=== PATIENT | female | born 1995 | race Caucasian/White ===

== ENCOUNTER 2018-07-12 22:57 | Emergency (ER) | payer SELFPAY ==
[~2018-07-12] VITALS: Wt 66.1 kg
[2018-07-12 23:08] VITALS: BP 109/68; PULSE 66; RESP 18
[2018-07-13] MEDS ORDERED: NITR-58 PO (03:13)
--- NOTE | 2018-07-13 05:41 | ERD ---
ER Documentation Chief Complaint Chief Complaint DYSURIA, BILAT LOWER BACK PAIN X'S 2 DAYS HPI 23-year-old female presenting with lower back pain dysuria. Patient denies any hematuria. Denies fevers. Has urinary frequency and a mild headache. Denies chest pain or shortness of breath. Denies medical problems. NKDA. Surgical history . Social history denies ROS All systems reviewed and are negative except as per history of present illness. Medications Home Meds Active Scripts Nitrofurantoin Monohyd Macrocr* (Macrobid*) 100 Mg Capsr, 100 MG PO BID for 14 Days, CAP Prov:NIGEL FIELDS PA-C 07/13/18 Allergies Allergies: Coded Allergies: No Known Allergy (Unverified , 07/13/18) PMhx/Soc Medical and Surgical Hx: pt denies Medical Hx, pt denies Surgical Hx History of Surgery: Yes (C SECTION ) Hx Alcohol Use: No Hx Substance Use: No Hx Tobacco Use: No Smoking Status: Never smoker FmHx Family History: No diabetes, No coronary disease, No other Physical Exam Vitals Vital Signs Date Temp Pulse Resp B/P (MAP) Pulse Ox O2 O2 Flow FiO2 Time Delivery Rate 07/12/18 98.6 66 18 109/68 99 23:08 (82) Physical Exam GENERAL: The patient is well-appearing, well-nourished, in no acute distress HEENT: Atraumatic. Conjunctivae are pink. Pupils equal, round, and reactive to light. There is no scleral icterus. Tympanic membranes clear bilaterally. Oropharynx clear. NECK: C-spine is soft and supple. There is no meningismus. There is no cervical lymphadenopathy. CHEST: Clear to auscultation bilaterally. There are no rales, wheezes or rhonchi. HEART: Regular rate and rhythm. No murmurs, clicks, rubs or gallops. ABDOMEN:Soft, nontender and nondistended. Good bowel sounds. No rebound or guarding. No gross peritonitis. No gross organomegaly or masses. BACK: No midline or flank tenderness. Results 24 hrs Laboratory Tests Test 07/13/18 02:48 07/13/18 02:50 Bedside Urine pH (LAB) 7.5 Bedside Urine Protein (LAB) Trace Bedside Urine Glucose (UA) Negative Bedside Urine Ketones (LAB) Negative Bedside Urine Blood Negative Bedside Urine Nitrite (LAB) Negative Bedside Urine Leukocyte Esterase (L Trace POC Beta HCG, Qualitative POSITIVE Procedures/MDM ER course: Urine positive. Urinalysis mild infection. MDM: 23-year-old female presenting with dysuria. Patient will be treated for urinary tract infection. Patient is a new finding of . I have low suspicion for pelvic emergency. I have low suspicion for ectopic as patient does not have lateralized pelvic pain on exam. Patient is not having vaginal bleeding. Patient does not require blood work or imaging and associated with her is recommended to follow-up with her primary doctor in 1 to 2 days for close evaluation. All questions answered at discharge Departure Diagnosis: Primary Impression: UTI (urinary tract infection) Additional Impression: Condition: Stable Patient Instructions: Understanding Urinary Tract Infections (UTIs), , New Dx Referrals: [employer] [place] [address] [facility] [address] [place] [address]ABUSLEME ESTHER [address] [place] [address] DR. VIVAR COMO [address] [place] [address] DR ABDUL [facility] [address] [facility], [address] [address] [address] [facility] [address] [place] [address] [facility] [address] [place] [address] [facility] [address] - [place] [address], [facility] [address] [address] MARAVILLA, [place] [address] [facility]. [address], [facility] [address] [address] ROBERT [facility] [id number] [place] [id number] Additional Instructions: FOLLOW UP WITH YOUR PRIMARY CARE PHYSICIAN TOMORROW.Return to this facility if you are not improving as expected. NIGEL FIELDS PA-C July 13, 2018 05:41
== END 2018-07-13 03:24 | disposition home or self-care (01) ==
LOC: FTE 22:57 → EDBD 22:57 → FTE 07-13 03:24
DX: N39.0 Urinary tract infection, site not specified (principal); Z33.1 Pregnant state, incidental
CPT/HCPCS: 81003; 81025; 99283

== ENCOUNTER 2018-07-30 20:11 | Emergency (ER) | payer MEDICAID ==
[~2018-07-30] VITALS: Ht 154.9 cm; Wt 65.6 kg
[~2018-07-30 20:11] MED LIST: NITR-58 PO
[2018-07-30 20:13] VITALS: Ht 154.9 cm; Wt 65.6 kg
[2018-07-30] MEDS ORDERED: NITR-58 PO (23:42)
[2018-07-30] MEDS ORDERED: ACET-141 PO (23:42)
--- NOTE | 2018-07-30 23:50 | ERD ---
ER Documentation Chief Complaint Chief Complaint C/O PELVIC PAIN SINCE YESTERDAY, 7 WEEKS PREG ROS All systems reviewed and are negative except as per history of present illness. Medications Home Meds Active Scripts Nitrofurantoin Monohyd Macrocr* (Macrobid*) 100 Mg Capsr, 100 MG PO BID for bacteruria in for 5 Days, #10 CAP Prov:JAYLEEN DELGADO DO 07/30/18 Acetaminophen* (Acetaminophen*) 500 MG Extra Strength Tablet, 500 MG PO Q4H PRN for PAIN AND OR ELEVATED TEMP, #30 TAB Prov:JAYLEEN DELGADO DO 07/30/18 Nitrofurantoin Monohyd Macrocr* (Macrobid*) 100 Mg Capsr, 100 MG PO BID for 14 Days, CAP Prov:NIGEL FIELDS PA-C 07/13/18 Allergies Allergies: Coded Allergies: No Known Allergy (Unverified , 07/13/18) PMhx/Soc History of Surgery: Yes (C SECTION ) Hx Alcohol Use: No Hx Substance Use: No Hx Tobacco Use: No Smoking Status: Never smoker Physical Exam Vitals Vital Signs Date Temp Pulse Resp B/P (MAP) Pulse Ox O2 O2 Flow FiO2 Time Delivery Rate 07/30/18 98.0 60 21 120/70 99 20:13 (87) Physical Exam Const: No acute distress Head: Atraumatic Eyes: Normal Conjunctiva ENT: Normal External Ears, Nose and Mouth. Neck: Full range of motion. No meningismus. Resp: Clear to auscultation bilaterally Cardio: Regular rate and rhythm, no murmurs Abd: Soft, non tender, non distended. Normal bowel sounds Skin: No petechiae or rashes Back: No midline or flank tenderness Ext: No cyanosis, or edema Neur: Awake and alert Psych: Normal Mood and Affect Result Diagram: 07/30/182109 Results 24 hrs Laboratory Tests Test 07/30/18 21:10 White Blood Count 12.2 10^3/ul Red Blood Count 4.58 10^6/ul Hemoglobin 13.7 g/dl Hematocrit 40.6 % Mean Corpuscular Volume 88.6 fl Mean Corpuscular Hemoglobin 29.9 pg Mean Corpuscular Hemoglobin Concent 33.7 g/dl Red Cell Distribution Width 13.6 % Platelet Count 317 10^3/UL Mean Platelet Volume 9.9 fl Immature Granulocytes % 0.400 % Neutrophils % 62.6 % Lymphocytes % 20.8 % Monocytes % 8.6 % Eosinophils % 7.2 % Basophils % 0.4 % Nucleated Red Blood Cells % 0.0 /100WBC Immature Granulocytes # 0.050 10^3/ul Neutrophils # 7.7 10^3/ul Lymphocytes # 2.5 10^3/ul Monocytes # 1.1 10^3/ul Eosinophils # 0.9 10^3/ul Basophils # 0.1 10^3/ul Nucleated Red Blood Cells # 0.0 10^3/ul Urine Color YELLOW Urine Clarity CLOUDY Urine pH 7.0 Urine Specific [place] 1.011 Urine Ketones NEGATIVE mg/dL Urine Nitrite NEGATIVE mg/dL Urine Bilirubin NEGATIVE mg/dL Urine Urobilinogen NEGATIVE mg/dL Urine Leukocyte Esterase TRACE Vishnu/ul Urine Microscopic RBC 5 /HPF Urine Microscopic WBC 7 /HPF Urine Squamous Epithelial Cells MODERATE /HPF Urine Amorphous Crystals FEW /HPF Urine Mucus FEW /HPF Urine Hemoglobin NEGATIVE mg/dL Urine Glucose NEGATIVE mg/dL Urine Total Protein NEGATIVE mg/dl Beta HCG, Quantitative 17655.0 mIU/ml Departure Diagnosis: Primary Impression: Pelvic pain complicating Trimester: first trimester Qualified Codes: O26.891 - Other specified related conditions, first trimester; R10.2 - Pelvic and perineal pain Additional Impressions: bradycardia Subchorionic hemorrhage in first trimester UTI (urinary tract infection) Condition: Fair Patient Instructions: Understanding Urinary Tract Infections (UTIs), Adapting to : First Trimester Referrals: [facility] YOU HAVE RECEIVED A MEDICAL SCREENING EXAM AND THE RESULTS INDICATE THAT YOU DO NOT HAVE A CONDITION THAT REQUIRES URGENT TREATMENT IN THE EMERGENCY DEPARTMENT. FURTHER EVALUATION AND TREATMENT OF YOUR CONDITION CAN WAIT UNTIL YOU ARE SEEN IN YOUR DOCTORS OFFICE WITHIN THE NEXT 1-2 DAYS. IT IS YOUR RESPONSIBILITY TO MAKE AN APPOINTMENT FOR FOLOW-UP CARE. IF YOU HAVE A PRIMARY DOCTOR --you should call your primary doctor and schedule an appointment IF YOU DO NOT HAVE A PRIMARY DOCTOR YOU CAN CALL OUR PHYSICIAN REFERRAL HOTLINE AT IF YOU CAN NOT AFFORD TO SEE A PHYSICIAN YOU CAN CHOSE FROM THE FOLLOWING [facility] [address] [facility] [address] [facility]. [facility] [address] [facility] [address] [facility] [address] [facility] [address] [facility] DENTAL TECHNICIAN [place] [address] [facility] [address] [place] [address] OFFICE FAX , [facility] [address] [place] [address] DR. VIVAR, [place] [address] [place] [address] DR ABDUL, [facility] [address] [facility], [address], [facility] [address] [address] [facility] [address] [place] [address] [facility] [address] [place] [address] [phone] [facility] [address] - [address] RUIZ, [place] [address], [place] [address] DR MARAVILLA, [place] [address] [facility]. [address], [place] [address] [address] ROBERT, [facility] [address] [place], [place] [id number] Additional Instructions: Llame al doctor MAANA y ted roberta JONH PARA DENTRO DE 1-2 SERRANO.Dgale a la secretaria que nosotros le instruimos hacer esta jonh.Avise o llame si stack condicin se empeora antes de la jonh. Regresa aqui si peor o no mejor.. seguimiento con el ostretra. necesito repetir el ultrasonido. JAYLEEN DELGADO DO Jul 30, 2018 23:50
[2018-07-31 00:20] VITALS: BP 104/64; PULSE 67; RESP 18
== END 2018-07-31 00:21 | disposition home or self-care (01) ==
LOC: FTE 20:11
DX: O26.891 Other specified pregnancy related conditions, first trimester (principal); O36.8310 Maternal care for abnormalities of the fetal heart rate or rhythm, first trimester, not applicable or unspecified; O23.41 Unspecified infection of urinary tract in pregnancy, first trimester; O20.9 Hemorrhage in early pregnancy, unspecified; R10.2 Pelvic and perineal pain; Z3A.01 Less than 8 weeks gestation of pregnancy
CPT/HCPCS: 36415; 76801; 76817; 81001; 84702; 85025; 86900; 86901; Z7502

== ENCOUNTER 2018-09-24 04:48 | Emergency (ER) | payer MEDICAID ==
[~2018-09-24] VITALS: Ht 152.4 cm; Wt 65.7 kg
[~2018-09-24 04:48] MED LIST changes: +ACET-141 PO; +ACET325T33 PO; +CEPH-443 PO; +METO10TA92 PO
[2018-09-24 04:53] VITALS: BP 105/62; PULSE 57; RESP 17; Ht 152.4 cm; Wt 65.7 kg
[2018-09-24] MEDS ORDERED: ACETAMINOPHEN 325 MG TAB PO STA (05:15)
[2018-09-24] MEDS ORDERED: ONDANSETRON (ODT) 4 MG TAB ODT STA (05:15)
--- NOTE | 2018-09-24 05:57 | ERD ---
ER Documentation Chief Complaint Chief Complaint Fever & abdominal pain since yesterday; 16 wks HPI 23-year-old female presented to ED for fever abdominal pain back pain since yesterday. Patient states she is 16 weeks she has not had any complications this . Patient denies any vaginal discharge or bleeding but does state she has crampy abdominal pain. The patient denies any allergies to medications. Patient states that her first . Patient states she feels nauseous but has not thrown up. ROS All systems reviewed and are negative except as per history of present illness. Medications Home Meds Active Scripts Cephalexin* (Keflex*) 500 Mg Capsule, 500 MG PO QID for 10 Days, CAP Prov:NIGEL FIELDS PA-C 09/24/18 Acetaminophen* (Tylenol*) 325 Mg Tablet, 1 TAB PO Q6 PRN for PAIN AND OR ELEVATED TEMP, #20 TAB Prov:NOLBERTO LYNN PA-C 09/24/18 Metoclopramide* (Reglan*) 10 Mg Tablet, 10 MG PO Q6 PRN for NAUSEA AND/OR VOMITING, #10 TAB Prov:NOLBERTO LYNN PA-C 09/24/18 Nitrofurantoin Monohyd Macrocr* (Macrobid*) 100 Mg Capsr, 100 MG PO BID for bacteruria in for 5 Days, #10 CAP Prov:JAYLEEN DELGADO DO 07/30/18 Acetaminophen* (Acetaminophen*) 500 MG Extra Strength Tablet, 500 MG PO Q4H PRN for PAIN AND OR ELEVATED TEMP, #30 TAB Prov:JAYLEEN DELGADO DO 07/30/18 Nitrofurantoin Monohyd Macrocr* (Macrobid*) 100 Mg Capsr, 100 MG PO BID for 14 Days, CAP Prov:NIGEL FIELDS PA-C 07/13/18 Allergies Allergies: Coded Allergies: No Known Allergy (Unverified , 07/13/18) PMhx/Soc History of Surgery: Yes (2 ) Anesthesia Reaction: No Hx Neurological Disorder: No Hx Respiratory Disorders: No Hx Cardiac Disorders: No Hx Psychiatric Problems: No Hx Miscellaneous Medical Probl: No Hx Alcohol Use: No Hx Substance Use: No Hx Tobacco Use: No Smoking Status: Never smoker FmHx Family History: No diabetes, No coronary disease, No other Physical Exam Vitals Vital Signs Date Temp Pulse Resp B/P (MAP) Pulse Ox O2 O2 Flow FiO2 Time Delivery Rate 09/24/18 98.7 57 17 105/62 100 04:53 (76) Physical Exam GENERAL: Moderate distress HEENT: Atraumatic. Conjunctivae are pink. Pupils equal, round, and reactive to light. There is no scleral icterus. Tympanic membranes clear bilaterally. Oropharynx clear. No nystagmus or photophobia. NECK: C-spine is soft and supple. There is no meningismus. There is no cervical lymphadenopathy. CHEST: Clear to auscultation bilaterally. There are no rales, wheezes or rhonchi. HEART: Regular rate and rhythm. No murmurs, clicks, rubs or gallops. ABDOMEN:Soft, nontender and nondistended. Good bowel sounds. No rebound or guarding. No gross peritonitis. No gross organomegaly or masses. No Ward sign or McBurney point tenderness. BACK: CVA tenderness Result Diagram: 09/24/18 0523 Results 24 hrs Laboratory Tests Test 09/24/18 05:23 White Blood Count 8.0 10^3/ul Red Blood Count 4.07 10^6/ul Hemoglobin 12.5 g/dl Hematocrit 36.4 % Mean Corpuscular Volume 89.4 fl Mean Corpuscular Hemoglobin 30.7 pg Mean Corpuscular Hemoglobin Concent 34.3 g/dl Red Cell Distribution Width 13.2 % Platelet Count 236 10^3/UL Mean Platelet Volume 10.1 fl Immature Granulocytes % 0.100 % Neutrophils % 62.8 % Lymphocytes % 23.1 % Monocytes % 7.4 % Eosinophils % 6.3 % Basophils % 0.3 % Nucleated Red Blood Cells % 0.0 /100WBC Immature Granulocytes # 0.010 10^3/ul Neutrophils # 5.0 10^3/ul Lymphocytes # 1.8 10^3/ul Monocytes # 0.6 10^3/ul Eosinophils # 0.5 10^3/ul Basophils # 0.0 10^3/ul Nucleated Red Blood Cells # 0.0 10^3/ul Urine Color YELLOW Urine Clarity TURBID Urine pH 7.0 Urine Specific [place] 1.016 Urine Ketones NEGATIVE mg/dL Urine Nitrite NEGATIVE mg/dL Urine Bilirubin NEGATIVE mg/dL Urine Urobilinogen NEGATIVE mg/dL Urine Leukocyte Esterase 1+ Vishnu/ul Urine Microscopic RBC 4 /HPF Urine Microscopic WBC 40 /HPF Urine Squamous Epithelial Cells MODERATE /HPF Urine Amorphous Crystals MANY /HPF Urine Bacteria FEW /HPF Urine Mucus FEW /HPF Urine Hemoglobin NEGATIVE mg/dL Urine Glucose NEGATIVE mg/dL Urine Total Protein NEGATIVE mg/dl Beta HCG, Quantitative 62969.0 mIU/ml Current Medications Medications Dose Sig/Arpan Start Time Status Last (Trade) Ordered Route PRN Stop Time Admin Dose Reason Admin 650 mg ONCE STAT 09/24/18 DC 09/24/18 Acetaminophen PO 05:15 06:25 (Tylenol 09/24/18 05:20 Tab) Ondansetron 4 mg ONCE STAT 09/24/18 DC 09/24/18 HCl (Zofran ODT 05:15 06:25 Odt) 09/24/18 05:20 Procedures/MDM ED course: The patient was stable throughout the ED course. The patient and/or family informed of laboratory and diagnostic imaging results throughout the ED course. Diagnostic imaging: Read by radiologist PROCEDURE: US OB. CLINICAL INDICATION: Hemorrhage. Threatened . TECHNIQUE: Transabdominal views of the pelvis are available for review. COMPARISON: Pelvic ultrasound July 30, 2018 FINDINGS: Noted is a single intrauterine gestation in variable lie with positive heart beat measuring 134 beats per minute. [place]-rump length measures 7.7 cm cor responding to a gestational age 13-week 6 days. Placenta is anterior grade 0 without evidence of previa. Maternal cervix was not imaged. The volume of fluid within the sac is normal. The right ovary measures 3.0 x 2.2 x 2.3 cm. Left ovary measures 3.7 x 2.1 x 2.1 cm. No adnexal masses seen. There is normal arterial flow to both ovaries on color-flow Doppler imaging. No free fluid is seen in the pelvis. No solid pelvic mass is visualized. IMPRESSION: Single intrauterine gestation with positive heart beat estimated age 13 weeks 6 days. Estimated date of delivery by ultrasound criteria is March 26, 2019 Medications given in ER: Zofran Patient tolerated medication well with no adverse reactions. Patient reported improvement in pain. Medical decision making: Patient is a 23-year-old female who is 16 weeks presented to ED for fever abdominal pain back pain since yesterday. Patient denies vaginal bleeding or discharge. Patient physical exam revealed CVA tenderness. The [place] beta hcg 20483.0 and ultra sound intrauterine gestation with positive heart beat estimated age 13 weeks. The patient UA indicated the patient has a UTI. The patient remained afebrile during her ED visit and reports improvement in nausea post medication. The patient will be treated out patient with keflex. At this time I have low suspicion for pyelonephritis, ectopic , ruptured ectopic , molar , subchorionic hematoma, spontaneous , incomplete , complete , missed , placental abruption, placental previa, vasa previa, uterine rupture, anembryonic . I advised the patient she needs to follow up with her OBGYN in regards of this visit. I informed the patient that if untreated UTI can lead to miscarriage. I advised the patient that if symptoms worsen to return to the ER immediately. All questions were answered upon discharge and patient is in agreement to the treatment plan. Prescription for home: Keflex Tylenol Reglan I have discussed with the patient proper use and common side effects to expert with the medication . I advised the patient/family to speak with the pharmacist dispensing the medication to be advised of any potential drug interactions with other medication or supplements they may be taking. Discharge: At this time, patient is stable for discharge and outpatient management. I have instructed the patient to follow-up with his\her primary care physician in 1 to 2 days. I have discussed with the patient the possibility of needing to see a specialist for further work-up and imaging studies if symptoms persist. I have instructed the patient to promptly return to the ER for any new or worsening symptoms including increased pain, fever, nausea, vomiting, weakness or LOC. The patient and\or family expressed understanding of and agreement with this plan. All questions were answered. Home care instructions were provided. Disclaimer: Inadvertent spelling and grammatical errors are likely due to EHR\dictation software use and do not reflect on the overall quality of patient care. Also, please note that the electronic time recorded on the note does not necessarily reflect the actual time of the patient encounter. Departure Diagnosis: Primary Impression: UTI in Trimester: second trimester Qualified Codes: O23.42 - Unspecified infection of urinary tract in , second trimester Additional Impression: Abdominal pain Abdominal location: generalized Qualified Codes: R10.84 - Generalized abdominal pain Condition: NOLBERTO King PA-C Sep 24, 2018 05:57
== END 2018-09-24 06:31 | disposition home or self-care (01) ==
LOC: FTE 04:48
DX: O23.41 Unspecified infection of urinary tract in pregnancy, first trimester (principal); R10.84 Generalized abdominal pain; Z3A.13 13 weeks gestation of pregnancy
CPT/HCPCS: 36415; 76801; 81001; 84702; 85025; 86900; 86901; 87086; Z7502; Z7610